=== PATIENT | female | born 1985 | race American Indian/Alaskan Native ===

== ENCOUNTER 2021-04-24 01:10 | Emergency (ER) | payer SELFPAY ==
[2021-04-24 01:15] VITALS: BP 141/88
[2021-04-24] MEDS ORDERED: ASPIRIN 325 MG TAB PO ONE (02:22)
[2021-04-24 02:53] LABS: Basophils % (Auto) 0.5 % (0.0-1.8); Eosinophils # (Auto) 0.1 K/mm3 (0.0-0.4); Eosinophils % (Auto) 2.5 % (0.0-4.3); Hematocrit 36.1 % (30.3-42.9); Hemoglobin 11.5 gm/dl (10.1-14.3); Lymphocytes % (Auto) 33.7 % (13.4-35.0); Mean Corpuscular HGB Conc 32 % (30-34); Mean Corpuscular Volume 84 fl (79-97); Monocytes # (Auto) 0.4 K/mm3 (0.0-0.8); Monocytes % (Auto) 6.7 % (0.0-7.3); Platelet Count 245 K/mm3 (140-440); Red Blood Count 4.29 M/mm3 (3.65-5.03); Red Cell Distribution Width 16.2 % (13.2-15.2)
[2021-04-24 03:09] LABS: Alanine Aminotransferase 13 units/L (7-56); Albumin 4.2 g/dL (3.9-5); Blood Urea Nitrogen 11 mg/dL (7-17); Calcium 9.4 mg/dL (8.4-10.2); Hemolysis Index 0
[2021-04-24 03:21] LABS: BUN/Creatinine Ratio 18
--- NOTE | 2021-04-24 03:38 | XRay Report ---
CHEST 1 VIEW 04/24/2021 3:25 AM INDICATION / CLINICAL INFORMATION: chest pain. COMPARISON: None available. FINDINGS: SUPPORT DEVICES: None. HEART / MEDIASTINUM: No significant abnormality. LUNGS / PLEURA: No significant pulmonary or pleural abnormality. No pneumothorax. ADDITIONAL FINDINGS: No significant additional findings. IMPRESSION: 1. No acute findings. Signer Name: Renetta Guajardo MD Signed: 04/24/2021 3:34 AM Workstation Name: [id number]
--- NOTE | 2021-04-24 03:49 | Emergency Department Report ---
ED Chest Pain HPI - General Chief Complaint: Chest Pain Stated Complaint: CP Source: patient Mode of arrival: Ambulatory Limitations: No Limitations - History of Present Illness Initial Comments: Patient is a 35-year-old -Portuguese female with a history of morbid obesity presented to the ED with complaint of acute onset persistent left-sided chest wall pain after cleaning her kitchen and floors about 6 hours ago. Patient states that she went to bed after cleaning the floors and experiencing left-sided chest pain which has been constant since the onset. Patient denies dizziness, syncope, fever and chills, nausea and vomiting, shortness of breath, cough, diaphoresis, headache, neck pain, back pain, abdominal pain, fall or traumatic injury. MD Complaint: chest pain (left-sided chest wall pain after cleaning her floors) -: Sudden, hour(s) (6) Onset: during rest Pain Location: left chest Pain Radiation: none Severity: moderate Severity scale (0 -10): 6 Quality: aching, sharp Consistency: constant Improves With: nothing Worsens With: palpation, movement re: denies: nausea, vomting, diaphoresis, dyspnea, sense of impending doom Other Symptoms: denies: cough, fever, syncope, rash, acid taste in mouth, leg swelling, palpitations, burping Treatments Prior to Arrival: none Aspirin use within the Past 7 Days: (0) No - Related Data On Oral Contraceptives: No Previous Rx's Medication Instructions Recorded Last Taken Type Baclofen 20 mg PO Q12H PRN #20 tab 04/24/21 Unknown Rx Naproxen 500 mg PO Q12H PRN #20 tab 04/24/21 Unknown Rx Allergies Allergy/AdvReac Type Severity Reaction Status Date / Time No Known Allergies Allergy Unverified 04/24/21 01:11 Heart Score - HEART Score History: Slightly suspicious EKG: Normal Age: < 45 Risk factors: No known risk factors Troponin: < normal limit HEART Score: 0 - EKG Read Time Time EKG Completed: :23 EKG Read Time: :27 - Critical Actions Critical Actions: 0-3 pts:0.9-1.7%risk of adverse cardiac event.Candidate for discharge ED Review of Systems ROS: Stated complaint: CP Other details as noted in HPI Constitutional: denies: chills, fever Eyes: denies: eye pain, eye discharge, vision change ENT: denies: ear pain, throat pain Respiratory: denies: cough, shortness of breath, wheezing Cardiovascular: chest pain (Left-sided chest pain). denies: palpitations Endocrine: no symptoms reported Gastrointestinal: denies: abdominal pain, nausea, diarrhea Genitourinary: denies: urgency, dysuria, discharge Musculoskeletal: denies: back pain, joint swelling, arthralgia Skin: denies: rash, lesions Neurological: denies: headache, weakness, paresthesias Psychiatric: denies: anxiety, depression Hematological/Lymphatic: denies: easy bleeding, easy bruising ED Past Medical Hx - Medications Home Medications: Home Medications Medication Instructions Recorded Confirmed Last Taken Type Baclofen 20 mg PO Q12H PRN #20 tab 04/24/21 Unknown Rx Naproxen 500 mg PO Q12H PRN #20 tab 04/24/21 Unknown Rx ED Physical Exam - General Limitations: No Limitations General appearance: alert, in no apparent distress - Head Head exam: Present: atraumatic, normocephalic, normal inspection - Eye Eye exam: Present: normal appearance, PERRL, EOMI Pupils: Present: normal accommodation - ENT ENT exam: Present: normal exam, normal orophraynx, mucous membranes moist, TM's normal bilaterally, normal external ear exam - Neck Neck exam: Present: normal inspection, full ROM. Absent: tenderness - Respiratory Respiratory exam: Present: normal lung sounds bilaterally, chest wall tenderness (Palpable reproducible left-sided chest wall tenderness). Absent: respiratory distress, wheezes, rales, accessory muscle use, decreased breath sounds, prolonged expiratory - Cardiovascular Cardiovascular Exam: Present: regular rate, normal rhythm, normal heart sounds. Absent: systolic murmur, diastolic murmur, rubs, gallop - GI/Abdominal GI/Abdominal exam: Present: soft, normal bowel sounds. Absent: tenderness, gua rding, hyperactive bowel sounds, hypoactive bowel sounds, organomegaly - Extremities Exam Extremities exam: Present: normal inspection, full ROM, normal capillary refill - Back Exam Back exam: Present: normal inspection, full ROM. Absent: tenderness, CVA tenderness (R), CVA tenderness (L), muscle spasm, paraspinal tenderness - Neurological Exam Neurological exam: Present: alert, oriented X3, CN II-XII intact, normal gait, reflexes normal - Psychiatric Psychiatric exam: Present: normal affect, normal mood - Skin Skin exam: Present: warm, dry, intact, normal color. Absent: rash ED Course Vital Signs 04/24/21 01:11 Temperature 98.7 F Pulse Rate 80 Respiratory 17 Rate Blood Pressure 141/88 [Right] O2 Sat by Pulse 99 Oximetry YONATAN score - Yonatan Score Age > 65: (0) No Aspirin use within the Past 7 Days: (0) No 3 or more CAD Risk Factors: (0) No 2 or more Angina events in past 24 hrs: (0) No Known CAD with more than 50% Stenosis: (0) No Elevated Cardiac Markers: (0) No ST Deviation Greater than 0.5mm: (0) No YONATAN Score: 0 ED Medical Decision Making - Lab Data Result diagrams: 04/24/21 02:31 04/24/21 02:31 - EKG Data EKG shows normal: sinus rhythm Rate: normal - EKG Data Interpretation: normal EKG 04/24/21 03:49 EKG shows normal sinus rhythm with a ventricular rate of [address] or T wave abnormalities. - Radiology Data Radiology results: report reviewed, image reviewed [address] [address] XRay Report Signed Patient: KALLI SPENCER MR#: [id number] : 1985 Acct:[id number] Age/Sex: 35 / F ADM Date: 04/24/21 Loc: ED Attending Dr: Ordering Physician: JOHN SEARS Date of Service: 04/24/21 Procedure(s): XR chest 1V ap Accession Number(s): [id number] cc: JOHN SEARS Fluoro Time In Minutes: CHEST 1 VIEW 04/24/2021 3:25 AM INDICATION / CLINICAL INFORMATION: chest pain. COMPARISON: None available. FINDINGS: SUPPORT DEVICES: None. HEART / MEDIASTINUM: No significant abnormality. LUNGS / PLEURA: No significant pulmonary or pleural abnormality. No pneumothorax. ADDITIONAL FINDINGS: No significant additional findings. IMPRESSION: 1. No acute findings. Signer Name: Renetta Guajardo MD Signed: 04/24/2021 3:34 AM Workstation Name: [id number] Transcribed By: DT Dictated By: Kendrick Guajardo MD Electronically Authenticated By: Kendrick Guajardo MD Signed Date/Time: 04/24/21333 DD/ 2 TD/TT: - Medical Decision Making This is a 35-year-old -Portuguese female with a history of morbid obesity presented to the ED with complaint of acute onset persistent left-sided chest wall pain after cleaning her kitchen and floors about 6 hours ago. Patient states that she went to bed after cleaning the floors and experiencing left- sided chest pain which has been constant since the onset. In the ED, patient is alert and oriented x3 and is not in any distress. Patient is hemodynamically stable. Patient's heart score is 0 and patient is PERC negative by Wells criteria. Chest x-ray showed no acute cardiopulmonary abnormalities or pneumonitis. Patient was treated in the ED with aspirin and Tylenol for pain. All lab test results were reviewed and are all nonactionable. Patient was therefore discharged home on medications for pain as her symptoms are likely musculoskeletal following strenuous physical activity including hard floors in her kitchen prior to the onset of the symptoms, and the fact that the patient's symptoms have been constant and reproducible on physical exam. Patient was therefore discharged home on medications for pain and advised to follow-up with her primary care physician in 3 to 5 days for reevaluation. Patient was advised return to the ED immediately if symptoms get worse. - Differential Diagnosis ACS; PE; pneumonia; costochondritis; muscle strain; dissection; Critical care attestation.: If time is entered above; I have spent that time in minutes in the direct care of this critically ill patient, excluding procedure time. ED Disposition Clinical Impression: Acute costochondritis, Muscle strain of anterior chest wall, Acute nonspecific chest pain with low risk of coronary artery disease Disposition: 01 HOME / SELF CARE / HOMELESS Is pt being admited?: No Does the pt Need Aspirin: No Condition: Stable Instructions: Chest Pain (ED), Nonspecific Chest Pain, Adult, [id number], Muscle Strain, [id number], Costochondritis, [id number] Additional Instructions: All lab test results are reviewed and are all nonactionable. Chest x-ray showed no acute cardiopulmonary abnormalities or pneumonitis. EKG shows normal sinus rhythm with a ventricular rate of 82 bpm. Your symptoms are likely musculoskeletal following the physical strenuous activities performed prior to the onset of the symptoms that involved cleaning the kitchen and the pavon, causing significant muscle strain of the chest wall during that activity. Th erefore take pain medication as needed, drink plenty of fluids, and follow-up with your primary care physician in 5 to 7 days for reevaluation. Return to the ED immediately if your symptoms get worse. Prescriptions: Baclofen 20 mg PO Q12H PRN #20 tab PRN Reason: Muscle Spasm Naproxen 500 mg PO Q12H PRN #20 tab PRN Reason: Pain , Severe (7-10) Referrals: [facility] [Provider Group] - 3-5 Days Time of Disposition: 03:52 Print Language: FINNISH
[2021-04-24] MEDS ORDERED: ACETAMINOPHEN 500 MG TAB PO ONE (03:56)
--- NOTE | 2021-04-29 20:57 | Electrocardiograph Report ---
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
== END 2021-04-24 04:26 | disposition home or self-care (01) ==
LOC: ED 01:10
DX: S29.011A Strain of muscle and tendon of front wall of thorax, initial encounter (principal); M94.0 Chondrocostal junction syndrome [Tietze]; X58.XXXA Exposure to other specified factors, initial encounter; Y93.89 Activity, other specified; Y92.89 Other specified places as the place of occurrence of the external cause; Y99.8 Other external cause status
CPT/HCPCS: 36415; 71045; 80053; 84484; 84703; 85025; 93005; 99284